=== PATIENT | male | born 1995 | race Caucasian/White ===

== ENCOUNTER 2018-01-09 22:33 | Emergency (ER) | payer OTHER ==
[~2018-01-09] VITALS: Ht 182.9 cm; Wt 170.1 kg
[~2018-01-09 22:33] MED LIST: ACYC800 PO; Amoxicillin500 MG PO; BUPR150ER PO; CITA20 PO; CODACE30 PO; GUAIFENESIN1200 MG PO; IBUP600 PO; IBUP800 PO; MELA3 PO; NAPR500 PO; NAPR550 PO; OLAN10 PO; OXYACE5T PO; PENVK500 PO; Percocet 5-3251 EACH PO; RXCODACET PO; RXNAPNA550 PO; Zofran Odt4 MG SL
[2018-01-09] MEDS ORDERED: LATUDA40 MG PO (23:15)
[2018-01-09] MEDS ORDERED: BUPR150ER PO (23:16)
[2018-01-09] MEDS ORDERED: TRAZ100 PO (23:16)
== END 2018-01-10 01:19 | disposition home or self-care (01) ==
LOC: ER 22:33
DX: S60.221A Contusion of right hand, initial encounter (principal); R45.1 Restlessness and agitation; X58.XXXA Exposure to other specified factors, initial encounter; Z88.8 Allergy status to other drugs, medicaments and biological substances; Z79.899 Other long term (current) drug therapy; F31.9 Bipolar disorder, unspecified; F17.200 Nicotine dependence, unspecified, uncomplicated
CPT/HCPCS: 73120